=== PATIENT | female | born 1985 | race African-American/Black ===

== ENCOUNTER 2016-12-13 21:08 | Outpatient (CLI) | payer MEDICAID ==
[2016-12-13 21:32] VITALS: BP 115/67
[2016-12-13 22:14] LABS: Bilirubin,Urine NEG (Negative); Blood,Urine NEG (Negative); Ketones,Urine TR mg/dL (Negative); Leukocyte Esterase,Urine NEG (Negative); Mucus,Urine 2+ /HPF; Nitrite,Urine NEG (Negative); Urobilinogen,Urine < 2.0 mg/dL (<2.0)
== END 2016-12-13 22:50 | disposition home or self-care (01) ==
LOC: TRG 21:08
PROVIDERS: ATTEND Obstetrics & Gynecology
DX: O26.892 Other specified pregnancy related conditions, second trimester (principal); R10.9 Unspecified abdominal pain; R42 Dizziness and giddiness; Z3A.24 24 weeks gestation of pregnancy
CPT/HCPCS: 81001

== ENCOUNTER 2017-03-29 01:09 | Inpatient (IN) | payer MEDICAID ==
[2017-03-29] MEDS ORDERED: ePHEDrine SULFATE IV PRN (01:52)
[2017-03-29] MEDS ORDERED: XYLOCAINE 2% INFILTRATI ONE ×2 (01:52→05:31)
[2017-03-29] MEDS ORDERED: ZOFRAN IV PRN ×2 (01:52→05:51)
[2017-03-29] MEDS ORDERED: BRETHINE IVP PRN (01:52)
[2017-03-29] MEDS ORDERED: NARCAN 0.4 MG/1 ML IV PRN (01:52)
[2017-03-29] MEDS ORDERED: SUBLIMAZE IV PRN (01:52)
[2017-03-29] MEDS ORDERED: MINERAL OIL PO PRN (01:52)
[2017-03-29] MEDS ORDERED: STADOL IV PRN (01:52)
[2017-03-29] MEDS ORDERED: BRETHINE SUB-Q PRN (01:52)
--- NOTE | 2017-03-29 01:56 | History and Physical Report ---
History of Present Illness Date of examination: 03/29/17 Chief complaint: Labor History of present illness: Pt is a 31yo HF EDC 03/30/17; EGA 39 5/7 weeks presents to L&D complaining of RUC's q 3-4 mins. She received care at [facility] since 8 weeks, and course has been unremarkable. records are available and GBS is negative. Past History Past Medical History: no pertinent history Past Surgical History: D[employer]C [employer] History: abnormal PAP smear Family/Genetic History: none Social history: no significant social history, - Obstetrical History Expected Date of Delivery: 03/30/17 Actual Gestation: 39 Week(s) 6 Day(s) : 5 Medications and Allergies Allergies Allergy/AdvReac Type Severity Reaction Status Date / Time No Known Allergies Allergy Verified 01/19/15 03:12 Home Medications Medication Instructions Recorded Confirmed Last Taken Type Vit/Iron Fumarate/FA 1 each PO QDAY #90 tablet 01/29/14 12/13/16 08:00 Rx [ Vitamin Tablet] Review of Systems All systems: negative - Vital Signs Vital signs: Vital Signs Pulse BP 71 121/85 03/29/17 01:43 03/29/17 01:43 Temp Pulse Resp BP Pulse Ox 77 121/85 91 03/29/17 01:50 03/29/17 01:43 03/29/17 01:50 - Physical Exam Breasts: Positive: deferred Cardiovascular: Regular rate Lungs: Positive: Clear to auscultation Abdomen: Positive: normal appearance Genitourinary (Female): Positive: normal external genitalia Vagina: Positive: normal moisture Uterus: Positive: enlarged Extremities: Positive: normal - Obstetrical FHR: category 1 Uterine Contraction Monitor Mode: External Cervical Dilatation: 6 Cervical Effacement Percentage: 90 station: -2 Uterine Contraction Pattern: Regular Uterine Tone Measurement Phase: Contraction Uterine Contraction Intensity: Moderate Results Result Diagrams: 03/29/17 02:15 All other labs normal. Assessment and Plan - Patient Problems (1) 39 weeks gestation of Onset Date: 03/29/17 Current Visit: Yes Status: Acute Plan to address problem: A: IUP @ 39 5/7 weeks in labor P: Admit to L&D for expectant vaginal delivery
[2017-03-29] MEDS ORDERED: LACTATED RINGERS 1,000 ML IV SCH (02:00)
[2017-03-29] MEDS ORDERED: PITOCin/NS 20 UNIT/1000ML DRIP 20 UNITS/1,000 ML BAG IV SCH ×2 (02:00→06:00)
[2017-03-29] MEDS ORDERED: PITOCin/NS 30 UNIT/500ML 30 UNITS/500 ML BAG IV SCH ×2 (02:00)
[2017-03-29 03:06] LABS: Hematocrit 34.7 % (30.3-42.9); Hemoglobin 11.6 gm/dl (10.1-14.3); Mean Corpuscular HGB Conc 33 % (30-34); Mean Corpuscular Hemoglobin 29 pg (28-32); Mean Corpuscular Volume 85 fl (79-97); Platelet Count 162 K/mm3 (140-440); Red Blood Count 4.06 M/mm3 (3.65-5.03); White Blood Count 7.8 K/mm3 (4.5-11.0)
--- NOTE | 2017-03-29 05:43 | Procedure Note ---
OB Delivery Note - Delivery Date of Delivery: 03/29/17 Surgeon: KASHMIR KENNEDY Estimated blood loss: 200cc - Vaginal Delivery presentation: vertex Delivery position: OA Intrapartum events: none Delivery induction: AROM Delivery augmentation: rupture of membranes Delivery monitor: external FHT, external uterine Route of delivery: Delivery placenta: spontaneous Delivery cord: nuchal cord (x1), 3 umbilical vessels Episiotomy: none Delivery laceration: 1st degree (perineal) Delivery repair: vicryl Anesthesia: local Delivery comments: Infant delivered OA over intact perineum, nuchal cord x 1 easily reduced, and placed on mom's chest for [id number] bonding and delayed cord clamping. - Infant A at 1 minute: 8 at 5 minutes: 9 Gender: Female (3004gms)
[2017-03-29] MEDS ORDERED: LANSINOH TP PRN (05:51)
[2017-03-29] MEDS ORDERED: DULCOLAX PR PRN (05:51)
[2017-03-29] MEDS ORDERED: PHENERGAN PO PRN (05:51)
[2017-03-29] MEDS ORDERED: MILK OF MAGNESIA PO PRN (05:51)
[2017-03-29] MEDS ORDERED: BENADRYL PO PRN (05:51)
[2017-03-29] MEDS ORDERED: TUCKS PAD TP PRN (05:51)
[2017-03-29] MEDS ORDERED: TYLENOL PO PRN (05:51)
[2017-03-29] MEDS ORDERED: BOOSTRIX IM ONE (05:51)
[2017-03-29] MEDS ORDERED: PHENERGAN PR PRN (05:51)
[2017-03-29] MEDS ORDERED: SENOKOT S PO SCH (06:00)
[2017-03-29] MEDS ORDERED: SODIUM CHLORIDE FLUSH SYRINGE 10 ML IV NR (06:00)
[2017-03-29] MEDS: MOTRIN PO SCH ×3 (06:30→18:11)
[2017-03-29] MEDS: NORCO 5/325 PO PRN ×2 (11:09→21:56)
[2017-03-29] MEDS: FEOSOL PO SCH ×2 (11:09→21:57)
[2017-03-29] MEDS: PRENATAL VITAMIN PO SCH (11:09)
[2017-03-29] MEDS: COLACE PO SCH ×2 (11:09→21:57)
[2017-03-29] MEDS ORDERED: DERMOPLAST TP PRN (11:19)
[2017-03-29] MEDS ORDERED: SOLARCAINE ALOE TP ONE (11:19)
[2017-03-29 18:45] LABS: Hematocrit 27.9 % (30.3-42.9); Hemoglobin 9.6 gm/dl (10.1-14.3)
[2017-03-30] MEDS: MOTRIN PO SCH ×2 (05:30→13:40)
[2017-03-30] MEDS ORDERED: M-M-R II VACCINE SUB-Q ONE (06:00)
[2017-03-30] MEDS ORDERED: BOOSTRIX IM ONE (06:05)
--- NOTE | 2017-03-30 09:29 | Progress Note ---
Assessment and Plan - Patient Problems (1) 39 weeks gestation of Onset Date: 03/29/17 Current Visit: Yes Status: Resolved (2) Acute blood loss anemia Current Visit: Yes Status: Resolved (3) (normal spontaneous vaginal delivery) Onset Date: 03/30/17 Current Visit: No Status: Resolved Plan to address problem: A: S/P - PPD #1 Doing well Asymptomatic anemia - stable P: May go home today Subjective - Subjective Date of service: 03/30/17 Principal diagnosis: s/p - PPD #1 Interval history: Pt is feeling well without complaints. Bleeding improved. Patient reports: appetite normal, voiding normally, pain well controlled, flatus , ambulating normally : doing well, nursing well Objective - Vital Signs Latest vital signs: Vital Signs Temp Pulse Resp BP 03/30/17 08:25 98.1 F 74 20 93/53 03/30/17 01:15 98.5 F 72 18 103/66 03/29/17 16:55 98.6 F 79 20 105/68 03/29/17 14:31 98.7 F 80 20 108/57 03/29/17 11:09 20 Intake and Output 03/29/17 03/30/17 03/30/17 22:59 06:59 14:59 Intake Total 360 240 120 Balance 360 240 120 Intake: Oral 360 240 120 Other: Total, Intake Amount 240 120 120 # Voids Void 1 1 1 - Exam Breasts: Present: deferred Cardiovascular: Present: Regular rate Lungs: Present: Clear to auscultation Abdomen: Present: normal appearance, soft Uterus: Present: normal, firm, fundal height below umbilicus Extremities: Present: normal - Labs Labs: Abnormal lab results 03/29/17 Range/Units 18:18 Hgb 9.6 L (10.1-14.3) gm/dl Hct 27.9 L D (30.3-42.9) % Laboratory Tests 03/29/17 03/29/17 03/29/17 02:15 02:15 18:18 WBC 7.8 RBC 4.06 Hgb 11.6 9.6 L Hct 34.7 27.9 L D MCV 85 MCH 29 MCHC 33 RDW 15.0 Plt Count 162 Blood Type A POSITIVE Antibody Screen TNR LISETTE Antibody Screen Negative
--- NOTE | 2017-03-30 10:31 | Discharge Summary ---
Providers - Providers Date of Admission: 03/29/17 01:56 Date of discharge: 03/30/17 Attending physician: KASHMIR KENNEDY Primary care physician: KASHMIR KENNEDY Hospitalization Reason for admission: active labor, IUP at term Delivery: Episiotomy: none Laceration: 1st degree Other procedures: none complications: none Discharge diagnosis: IUP at term delivered [place] baby: female Hospital course: Unremarkable. Condition at discharge: Good Disposition: DC-01 TO HOME OR SELFCARE - Discharge Diagnoses (1) 39 weeks gestation of Status: Resolved (2) Acute blood loss anemia Status: Resolved (3) (normal spontaneous vaginal delivery) Status: Resolved Plan - Discharge Medications Prescriptions: Ferrous Sulfate [Feosol 325 MG tab] 325 mg PO BID #60 tablet Ibuprofen [Motrin] 800 mg PO Q8HR PRN #30 tablet PRN Reason: Pain, Moderate (4-6) Vit W-Ca,Fe,FA(<1 mg) [ Vitamins] 1 each PO DAILY #30 tablet - Provider Discharge Summary Activity: routine, no sex for 6 weeks, no heavy lifting 4 weeks, no strenuous exercise Diet: routine Instructions: routine Additional instructions: [] Smoking cessation referral if applicable(refer to patient education folder for contact #) [] Refer to [facility] Booklet Call your doctor immediately for: * Fever > 100.5 * Heavy vaginal bleeding ( >1 pad per hour) * Severe persistent headache * Shortness of breath * Reddened, hot, painful area to leg or breast * Drainage or odor from incision. * Keep incision clean and dry at all times and follow doctor's instructions regarding bathing/showering - Follow up plan Follow up: KASHMIR KENNEDY MD [Primary Care Provider] - 6 Weeks
[2017-03-30] MEDS: FEOSOL PO SCH (10:34)
[2017-03-30] MEDS: PRENATAL VITAMIN PO SCH (10:34)
[2017-03-30] MEDS: COLACE PO SCH (10:34)
[2017-03-30 13:29] VITALS: BP 97/58
== END 2017-03-30 13:00 | disposition home or self-care (01) | DRG 775 ==
LOC: TRG 01:09 → LD 01:56 → OB 08:48
PROVIDERS: ADMIT Obstetrics & Gynecology; ATTEND Obstetrics & Gynecology
PROC: 10E0XZZ Delivery of Products of Conception, External Approach (ICD-10-PCS; principal; 2017-03-29)
PROC: 10907ZC Drainage of Amniotic Fluid, Therapeutic from Products of Conception, Via Natural or Artificial Opening (ICD-10-PCS; 2017-03-29)
PROC: 0HQ9XZZ Repair Perineum Skin, External Approach (ICD-10-PCS; 2017-03-29)
PROC: 3E0234Z Introduction of Serum, Toxoid and Vaccine into Muscle, Percutaneous Approach (ICD-10-PCS; 2017-03-29)
DX: O69.1XX0 Labor and delivery complicated by cord around neck, with compression, not applicable or unspecified (principal); O70.0 First degree perineal laceration during delivery; O99.02 Anemia complicating childbirth; D62 Acute posthemorrhagic anemia; Z3A.39 39 weeks gestation of pregnancy; Z37.0 Single live birth; Z23 Encounter for immunization
CPT/HCPCS: 36415; 85014; 85018; 85027; 86850; 86900; 86901; 90471; 90707; 90715; J2590; J3010; J7120